=== PATIENT | male | born 1980 | race Caucasian/White ===

== ENCOUNTER → 2019-08-11 09:59 | Outpatient (CLI) | payer OTHER, SELFPAY ==
[2019-08-11 07:52] VITALS: BMI 24.1
--- NOTE | 2019-08-11 08:00 | LES_PTH ---
PATIENT: ENDY SOTO [facility][id number] AGE/SX: 45/M ROOM: RE08/11/[address]: Dr. Patrick Cardoso MD : 1980 BED: DIS: SPEC #: [id number] RECD: 08/11/19 09:52 STATUS: KESHA JANEEN #: [id number] SOFY: 08/11/19 08:[address]: Patrick Cardoso DEPT: SURGICAL PATHOLOGY RECD BY: Lucas Jean ENTERED: 08/11/19 11:07 SP TYPE: Lesion OTHR DR: Dr. Pola Cotto MD Tissues: A - Skin of arm B - Skin of arm C - Skin of arm Procedures: Surgery Specimen Level III HEADER OPERATION: Excision of left arm subcutaneous lesion x3 PRE-OP DIAGNOSIS: Lesion of subcutaneous tissue L98.9 TISSUE SUBMITTED: A - Proximal left arm subcutaneous lesion, B - Distal left arm subcutaneous lesion, C - Lateral left arm subcutaneous lesion MICROSCOPIC DIAGNOSIS A. Subcutaneous mass, left proximal arm, excision: Mature adipose tissue consistent with angiolipoma. B. Subcutaneous mass, distal left arm, excision: Mature adipose tissue consistent with angiolipoma. C. Subcutaneous mass, left lateral arm, excision: Mature adipose tissue consistent with angiolipoma. AM:vickie 08/12/19 COMMENT Case has been reviewed in consultation with Dr. Laird who concurs with the above diagnosis. IDC:SJ MICROSCOPIC DESCRIPTION Slides are reviewed. GROSS DESCRIPTION A - Received in fixative is one container labeled with the patient's name and designated left proximal arm. The specimen consists of an irregular piece of adipose tissue measuring 4 x 4 x 1.5 cm. The external surface is inked. Sections reveal yellow adipose cut surfaces without areas of hemorrhage, necrosis or cystic degeneration. Weft Straightener sections are submitted in three cassettes. B - Received in fixative is one container labeled with the patient's name and designated left distal arm. The specimen consists of a piece of yellow adipose tissue measuring 1.5 x 1.5 x 0.3 cm. The specimen is bisected and reveals yellow adipose cut surfaces without areas of hemorrhage, necrosis or cystic degeneration. The entire specimen is submitted in one cassette. C - Received in fixative is one container labeled with the patient's name and designated left lateral arm. The specimen consists of a piece of yellow adipose tissue measuring 1 x 1 x 0.3 cm. The specimen is bisected and reveals yellow adipose cut surfaces without areas of hemorrhage, necrosis or cystic degeneration. The entire specimen is submitted in one cassette. / SJ:rg 08/11/19 TC:1 CPT: 31905 x3
== END ==
PROVIDERS: Family Provider Family Medicine; PCP Family Medicine; Referring Provider Surgery; Visit Provider Surgery
DX: L98.9 Disorder of the skin and subcutaneous tissue, unspecified (principal)
CPT/HCPCS: 88304; 88305

== ENCOUNTER → 2020-07-07 10:06 | Outpatient (CLI) | payer OTHER, SELFPAY ==
[2020-01-29 08:49] VITALS: BMI 24.1
[2020-07-07 13:03] LABS: Anion Gap 4 (5-15); BUN 21 mg/dL (7-18); BUN/Creat Ratio 18.6 RATIO (10-20); Calcium,Total 8.9 mg/dL (8.5-10.1); Chloride 100 mmol/L (98-107); Cholesterol 221 mg/dL (200); Creatinine, Serum 1.13 mg/dL (0.70-1.30); EST Glomerular Filtration Rate 76 mL/min (>60); Est Glom Filt Rate - Afr Amer 93 mL/min (>60); Glucose 268 mg/dL (74-106); High Density Lipoprotein 31 mg/dL; Potassium 3.9 mmol/L (3.5-5.1); Sodium Level 135 mmol/L (136-145); Triglycerides 178 mg/dL; Very Low Density Lipoprotein 36 mg/dL (5-40)
[2020-07-07 13:11] LABS: Insulin 2.1 mU/L (2.6-37.6)
[2020-07-08 17:36] LABS: C-Peptide 0.8 ng/mL (1.1-4.4)
== END ==
PROVIDERS: PCP Family Medicine; Referring Provider Family Medicine; Visit Provider Family Medicine
DX: E11.9 Type 2 diabetes mellitus without complications (principal)
CPT/HCPCS: 36415; 80048; 80061; 83525; 84681

== ENCOUNTER → 2020-09-22 10:37 | Outpatient (CLI) | payer OTHER, SELFPAY ==
[2020-01-29 08:49] VITALS: BMI 24.1
[2020-09-22 12:16] LABS: Insulin 2.7 mU/L (2.6-37.6)
[2020-09-22 12:17] LABS: ALB/GLOB Ratio 1.1 RATIO (0.9-2.4); AST(SGOT) 21 U/L (15-37); Alanine Aminotransfer ALT/SGPT 33 U/L (16-61); Albumin, Serum 3.7 g/dL (3.2-5.0); Alkaline Phosphatase 81 U/L (45-117); Anion Gap 2 (5-15); BUN 22 mg/dL (7-18); Calcium,Total 8.4 mg/dL (8.5-10.1); Chloride 105 mmol/L (98-107); Cholesterol 274 mg/dL (200); Creatinine, Serum 1.05 mg/dL (0.70-1.30); EST Glomerular Filtration Rate 83 mL/min (>60); Est Glom Filt Rate - Afr Amer 101 mL/min (>60); Globulin 3.4 g/dL (2.2-4.2); Glucose 111 mg/dL (74-106); High Density Lipoprotein 41 mg/dL; Potassium 3.8 mmol/L (3.5-5.1); Protein, Total 7.1 g/dL (6.4-8.2); Sodium Level 139 mmol/L (136-145); Triglycerides 151 mg/dL; Very Low Density Lipoprotein 30 mg/dL (5-40)
== END ==
PROVIDERS: PCP Family Medicine; Referring Provider Family Medicine; Visit Provider Family Medicine
DX: E11.9 Type 2 diabetes mellitus without complications (principal)
CPT/HCPCS: 36415; 80053; 80061; 83525; 84681

== ENCOUNTER → 2020-12-19 06:47 | Outpatient (CLI) | payer OTHER, SELFPAY ==
[2020-11-28 09:08] VITALS: BMI 23.1
--- NOTE | 2020-12-19 08:47 | PFTCOMP ---
COMPLETE PULMONARY FUNCTION TEST INTERPRETATION Brief HPI: Patient is a 40 year old male, currently under the care of myself, who presents to [facility] for complete pulmonary function tests secondary to diagnosis of lung mass. Respiratory therapist reports good effort and reproducible results. Interpretation: Forced expiration spirometry shows no large airways obstructive ventilatory defect with an FEV1 of 108% predicted. There is no significant bronchodilator response by strict ATS criteria. Spirograms are of good quality and plateau normally. The respiratory flow volume loop shows a normal pattern. Lung volumes by body plethysmography show a normal total lung capacity at 7.53 L, 105% predicted. All other lung volumes are within normal limits. Diffusion capacity by carbon monoxide is normal at 99% predicted. The airway resistance is normal. No previous pulmonary function tests were available for review. Impression: These are normal pulmonary function test. Patient tolerated up to a pneumonectomy if necessary.
== END ==
PROVIDERS: PCP Nurse Practitioner Family; Referring Provider Internal Medicine Critical Care Medicine; Visit Provider Internal Medicine Critical Care Medicine
DX: R91.8 Other nonspecific abnormal finding of lung field (principal)
CPT/HCPCS: 94060; 94726; 94729

== ENCOUNTER → 2020-12-21 08:45 | Outpatient (CLI) | payer OTHER, SELFPAY ==
[2020-11-28 09:08] VITALS: BMI 23.1
[2020-12-19 07:49] LABS: Hematocrit 43.9 % (40-54); Hemoglobin 15.1 g/dL (13.0-16.5); Mean Corp Hgb Conc 34.4 g/dL (32-36); Mean Corpuscular Volume 87.3 fL (80-94); Platelet Count 248 K/mm3 (150-450); RBC Distribution Width CV 12.7 % (11.6-14.6); RBC Distribution Width SD 40.6 fl (35.1-43.9); Red Blood Count 5.03 M/mm3 (4.6-6.2); White Blood Count 6.1 K/mm3 (4.4-11.0)
[2020-12-19 08:19] LABS: Partial Thromboplast Time 27.8 Seconds (24.1-36.2); Prothrombin Time (Protime)PT. 12.2 SECONDS (11.7-14.9)
[2020-12-21] VITALS (13 sets, daily range): BP systolic 98–126; BP diastolic 40–85; PULSE 66–84; RESP 12–19; TEMP 36.9; O2SAT 98–100; BMI 23.0
--- NOTE | 2020-12-21 08:49 | CT_ITS ---
PROCEDURE: CT GUIDED CORE NEEDLE BIOPSY OF A left lower lobe LUNG LESION INDICATION: Male, 40 years old. Left lung mass biopsy. PHYSICIAN: Dr. PADDY Gaytan CONSENT: Written informed consent was obtained having explained the risks, benefits and alternatives in detail with the patient who accepted the risks and agreed to proceed. Laboratory review and clinical assessment was performed. CONSCIOUS SEDATION PROTOCOL: The Drugs used were: 2 mg Versed, IV., and 50 mcg Fentanyl, IV. The sedation time was: 16 minutes. Conscious sedation was started 9:54 AM and terminated at 1010 The conscious sedation protocol was independently monitored. RADIATION DOSAGE (If Supplied By Facility): CTDIvol = ( 19 ) mGy, DLP = ( 1375.56 ) mGycm Individualized dose optimization techniques were used for this CT. TECHNIQUE: The patient was placed in the pleural position. A noncontrast CT was performed to localize the lesion in the . The skin surface was prepped and draped in a sterile fashion. 1% lidocaine was used for local anesthesia. Using CT guidance, a 20-gauge coaxial biopsy device was advanced to the periphery of the lesion. A total of 5 core specimens were obtained. The specimens were placed in a formalin solution. A post procedure CT demonstrated no adverse sequelae or pneumothorax. The patient tolerated the procedure well without adverse event. A negative biopsy does not exclude malignancy. Further imaging or clinical followup based on patient condition and degree of clinical suspicion for malignancy. Suggest rebiopsy, if biopsy results do not match with clinical scenario. CT/Biopsy/Inj or Needle Placement IMPRESSION: 1. CT directed core needle biopsy of the left lower lobe pulmonary nodule using CT image guidance with image documentation as described. Pathology results are pending. 2. Conscious Sedation protocol utilized with independent monitoring. Electronically Signed: Filipe Bradley MD at 10:40 EST , Service support ,
[2020-12-21] MEDS: Midazolam 2 MG/2 ML Syringe IV (09:54)
[2020-12-21] MEDS: fentaNYL 100 MCG/2 ML Ampul IV ×2 (09:56→10:07)
--- NOTE | 2020-12-21 10:05 | ASPIGT_PTH ---
PATIENT: ENDY SOTO LOC: CT U#:[id number] AGE/SX: 45/M ROOM: RE12/21/[address]: Dr. Yassine Celestin MD : 1980 BED: DIS: SPEC #: [id number] RECD: 12/21/20 10:30 STATUS: KESHA JANEEN #: [id number] SOFY: 12/21/20 10:[address]: Yassine Celestin DEPT: SURGICAL PATHOLOGY RECD BY: Laura Goff ENTERED: 12/21/20 12:25 SP TYPE: ASP RAD OTHR DR: Fernando Vela, PICKER OPERATOR-C Tissues: Lung, NOS Procedures: FNA Specimen Adequacy Special Stain Group II Surgery Specimen Level IV Imprint (control) HEADER OPERATION: CT-guided lung biopsy PRE-OP DIAGNOSIS: Left upper lung mass TISSUE SUBMITTED: Left upper lung mass, 20-gauge core x5 MICROSCOPIC DIAGNOSIS Left upper lung mass, CT-guided core biopsy: Scant minute fragment of benign fibrous tissue. Negative for malignancy. See comment. UMANG:vickie 12/22/2020 COMMENT The specimen is evaluated at the time of biopsy by Dr. Laird. Immediate Evaluation = Negative for malignant cells. Correlation with clinical, radiologic findings and appropriate follow up are necessary. Rebiopsy is suggested if clinically indicated. Case has been reviewed in consultation with Dr. Ramsay who concurs with the above diagnosis. IDC:AM MICROSCOPIC DESCRIPTION Slides are reviewed. GROSS DESCRIPTION Received in fixative is one container labeled with the patient's name and designated left lung mass, CT-guided core biopsy. The specimen consists of a few minute fragments of fisher soft tissue measuring <0.1 cm in greatest dimension. The entire specimen is submitted in one cassette. Two touch imprints are prepared at the time of core biopsy. / UMANG:vickie 12/21/19 TC:5 CPT: 27942, 49305
--- NOTE | 2020-12-21 10:15 | RAD_ITS ---
STUDY: X-RAY CHEST REASON FOR EXAM: Male, 40 years old. POST LUNG BX TECHNIQUE: AP inspiration and expiration views. COMPARISON: None. FINDINGS: Immediate post left lung biopsy radiograph. No evidence of pneumothorax. RAD/Chest Insp/Exp 2 View IMPRESSION: Immediate post left lung biopsy radiograph. No evidence of pneumothorax. Electronically Signed: Filipe Bradley MD at 10:38 EST , Service support ,
--- NOTE | 2020-12-21 12:10 | RAD_ITS ---
STUDY: X-RAY CHEST REASON FOR EXAM: Male, 40 years old. 2 hour post lung biopsy TECHNIQUE: AP inspiration and expiration views. COMPARISON: Comparison is made with prior study done earlier in the day. FINDINGS: There is no evidence of a pneumothorax on the 2 hour post left lung biopsy radiograph. RAD/Chest Insp/Exp 2 View IMPRESSION: No evidence of pneumothorax on the 2 hour post left lung biopsy radiograph. Electronically Signed: Filipe Bradley MD at 12:33 EST , Service support ,
== END ==
PROVIDERS: PCP Nurse Practitioner Family; Referring Provider Internal Medicine Critical Care Medicine; Visit Provider Internal Medicine Critical Care Medicine
DX: R91.1 Solitary pulmonary nodule (principal)
CPT/HCPCS: 32408; 36415; 71046; 77012; 85027; 85610; 85730; 88172; 88305; 88313; 99155; 99156; 99157; J7040; A4216; C2613

== ENCOUNTER → 2021-01-31 10:24 | Outpatient (CLI) | payer OTHER, SELFPAY ==
[2021-01-18 09:39] VITALS: BMI 23.7
[2021-01-31 12:54] LABS: AST(SGOT) 30 U/L (15-37); Alanine Aminotransfer ALT/SGPT 35 U/L (16-61); Alkaline Phosphatase 91 U/L (45-117); Bilirubin, Direct 0.09 mg/dL (0.00-0.30); CRP < 2.90 mg/L (0.0-3.0); Globulin 3.7 g/dL (2.2-4.2); Protein, Total 7.7 g/dL (6.4-8.2)
[2021-02-03 14:09] LABS: Endomysial Antibody IgA Negative (Negative)
[2021-02-03 15:41] LABS: Immunoglobulin A < 5 mg/dL (90-386); t-Transglutaminase IgA <2 U/mL (0-3)
== END ==
PROVIDERS: PCP Nurse Practitioner Family; Referring Provider Nurse Practitioner Family; Visit Provider Internal Medicine Gastroenterology
DX: R19.7 Diarrhea, unspecified (principal)
CPT/HCPCS: 36415; 80076; 82784; 83516; 86140; 86255

== ENCOUNTER → 2021-02-15 09:44 | Outpatient (CLI) | payer OTHER, SELFPAY ==
[2021-01-18 09:39] VITALS: BMI 23.7
== END ==
PROVIDERS: PCP Nurse Practitioner Family; Referring Provider Internal Medicine Gastroenterology; Visit Provider Internal Medicine Gastroenterology
DX: R19.7 Diarrhea, unspecified (principal)
CPT/HCPCS: 36415; 83516

== ENCOUNTER → 2021-03-01 07:37 | Outpatient (CLI) | payer OTHER, SELFPAY ==
[2021-01-18 09:39] VITALS: BMI 23.7
--- NOTE | 2021-03-01 07:39 | CT_ITS ---
STUDY: CT CHEST WITHOUT CONTRAST REASON FOR EXAM: Male, 40 years old. New lung mass RADIATION DOSAGE (If Supplied By Facility): CTDIvol = ( 10.56 ) mGy, DLP = ( 401.02 ) mGycm TECHNIQUE: Transaxial imaging was performed without the administration of intravenous contrast material. Multiplanar coronal and sagittal images were reformatted. Individualized dose optimization techniques were used for this CT. COMPARISON: Comparison is made with prior outside examination dated 11/17/2020. FINDINGS: Mildly enlarged left axillary lymph node. The largest node measures 1.4 cm. The previously seen ill-defined density in the superior lateral aspect of the left upper lobe this abnormality was biopsied on prior examination. It presently measures 4 cm x 1.6 cm. This is essentially unchanged. There is no demonstrated pleural abnormality. Normal heart and pericardium. There are multiple small lymph nodes within the mediastinum, which are normal in size and morphology most compatible with reactive lymph hyperplasia. Normal hilar regions. Normal unenhanced pulmonary arteries. Normal aorta arch and descending thoracic aorta. Normal osseous structures. There is no demonstrated abnormality of the visualized upper abdomen. CT/Chest without Contrast IMPRESSION: Stable examination with an irregular density in the superior lateral aspect of the left lower lobe. Electronically Signed: Filipe Bradley MD at 12:48 EDT , Service support ,
== END ==
PROVIDERS: PCP Nurse Practitioner Family; Referring Provider Internal Medicine Critical Care Medicine; Visit Provider Internal Medicine Critical Care Medicine
DX: R91.8 Other nonspecific abnormal finding of lung field (principal)
CPT/HCPCS: 71250; C9803

== ENCOUNTER → 2021-03-01 14:49 | Outpatient (CLI) | payer OTHER, SELFPAY ==
[2021-01-18 09:39] VITALS: BMI 23.7
== END ==
PROVIDERS: PCP Nurse Practitioner Family; Referring Provider Internal Medicine Gastroenterology; Visit Provider Internal Medicine Gastroenterology
DX: Z11.59 Encounter for screening for other viral diseases (principal)
CPT/HCPCS: 87635; U0002

== ENCOUNTER → 2021-10-04 16:40 | Outpatient (CLI) | payer BC, SELFPAY ==
--- NOTE | 2021-10-04 16:43 | CT_ITS ---
INDICATION: Follow up lung mass EXAMINATION: CT Chest W/O Contrast Injection TECHNIQUE: Helically acquired images were obtained of the chest without IV contrast. A radiation dose optimization technique was used for this scan. COMPARISON: 03/01/2021. FINDINGS: Lungs: Stable appearance and size of an ill-defined lesion within the superior segment of the left lower lobe measuring 4.3 x 2.1 cm, previously 4.4 x 1.9 cm. Mediastinum: The cardiomediastinal silhouette is not enlarged. No mediastinal, hilar or axillary adenopathy. The thoracic aorta is unremarkable. Pleura: Unremarkable Bones/Soft tissues: No suspicious osseous or soft tissue lesions Upper abdomen: No visualized abnormalities in the upper abdomen. CT/Chest without Contrast IMPRESSION: Stable appearance and size of an ill-defined lesion within the superior segment of the left lower lobe. This was previously biopsied on 12/21/2020. No new findings. Electronically Signed: Pola Cosme MD at 18:14 EDT Tel , Service support ,
== END ==
PROVIDERS: PCP Nurse Practitioner Family; Referring Provider Internal Medicine Critical Care Medicine; Visit Provider Internal Medicine Critical Care Medicine
DX: R91.8 Other nonspecific abnormal finding of lung field (principal)
CPT/HCPCS: 71250

== ENCOUNTER → 2021-10-18 06:56 | Outpatient (CLI) | payer BC, SELFPAY ==
[2021-10-18 08:24] LABS: ALB/GLOB Ratio 0.9 RATIO (0.9-2.4); AST(SGOT) 17 U/L (15-37); Alanine Aminotransfer ALT/SGPT 30 U/L (16-61); Albumin, Serum 3.4 g/dL (3.2-5.0); Alkaline Phosphatase 91 U/L (45-117); Anion Gap 5 (5-15); BUN 22 mg/dL (7-18); BUN/Creat Ratio 21.6 RATIO (10-20); Calcium,Total 8.8 mg/dL (8.5-10.1); Chloride 104 mmol/L (98-107); Cholesterol 248 mg/dL (200); Creatinine, Serum 1.02 mg/dL (0.70-1.30); EST Glomerular Filtration Rate 86 mL/min (>60); Est Glom Filt Rate - Afr Amer 103 mL/min (>60); Globulin 3.9 g/dL (2.2-4.2); Glucose 147 mg/dL (74-106); High Density Lipoprotein 23 mg/dL; Potassium 4.1 mmol/L (3.5-5.1); Protein, Total 7.3 g/dL (6.4-8.2); Sodium Level 136 mmol/L (136-145); Triglycerides 534 mg/dL
== END ==
PROVIDERS: PCP Nurse Practitioner Family; Referring Provider Nurse Practitioner Family; Visit Provider Nurse Practitioner Family
DX: Z00.00 Encounter for general adult medical examination without abnormal findings (principal); Z13.6 Encounter for screening for cardiovascular disorders
CPT/HCPCS: 36415; 80053; 80061

== ENCOUNTER 2022-02-05 10:04 | Outpatient (CLI) | payer BC, SELFPAY ==
[2022-02-05 13:07] LABS: Vitamin D,25 Hydroxy 65.6 ng/mL
[2022-02-05 13:18] LABS: Cholesterol 256 mg/dL (200); High Density Lipoprotein 40 mg/dL; T4 Free Direct 1.05 ng/dL (0.76-1.46); Thyroid Stim Hormone (TSH) 1.82 uIU/mL (0.358-3.74); Triglycerides 126 mg/dL; Very Low Density Lipoprotein 25 mg/dL (5-40)
== END 2022-02-05 23:59 | disposition home or self-care (01) ==
LOC: BIMLAB 10:04
PROVIDERS: PCP Nurse Practitioner Family; Referring Provider Internal Medicine Endocrinology, Diabetes & Metabolism; Visit Provider Internal Medicine Endocrinology, Diabetes & Metabolism
DX: E78.2 Mixed hyperlipidemia (principal); E10.9 Type 1 diabetes mellitus without complications; E06.3 Autoimmune thyroiditis; K90.0 Celiac disease; E55.9 Vitamin D deficiency, unspecified
CPT/HCPCS: 36415; 80061; 82306; 84439; 84443

== ENCOUNTER → 2022-09-03 | Outpatient (CLI) | payer BC, SELFPAY ==
--- NOTE | 2022-09-03 06:56 | CT_ITS ---
STUDY: CT CHEST WITHOUT CONTRAST REASON FOR EXAM: Male, 42 years old. LLL lung mass RADIATION DOSAGE (If Supplied By Facility): CTDIvol = ( 13.09 ) mGy, DLP = ( 506.96 ) mGycm TECHNIQUE: Transaxial imaging was performed without the administration of intravenous contrast material. Multiplanar coronal and sagittal images were reformatted. Individualized dose optimization techniques were used for this CT. COMPARISON: Comparison is made with prior study dated 10/04/2021. FINDINGS: CHEST Stable appearance of the ill-defined nodular density in the posterior aspect of the superior segment of the left lower lobe. No new abnormality is seen. There is no demonstrated pleural abnormality. Normal heart and pericardium. Normal mediastinum. Normal hilar regions. Normal unenhanced pulmonary arteries. Normal aorta arch and descending thoracic aorta. Normal osseous structures. There is no demonstrated abnormality of the visualized upper abdomen. CT/Chest without Contrast IMPRESSION: Stable examination. Electronically Signed: Filipe Bradley MD at 15:31 EDT ,
== END | disposition home or self-care (01) ==
PROVIDERS: PCP Nurse Practitioner Family; Referring Provider Internal Medicine Critical Care Medicine; Visit Provider Internal Medicine Critical Care Medicine
DX: R91.8 Other nonspecific abnormal finding of lung field (principal)
CPT/HCPCS: 71250

== ENCOUNTER 2023-07-15 05:03 | Emergency (ER) | payer BC, SELFPAY ==
[2023-07-15 05:03] VITALS: BP 132/72; PULSE 79; RESP 16; TEMP 36.6; O2SAT 99; BMI 26.0
--- NOTE | 2023-07-15 05:28 | CT_ITS ---
EXAM: CT CERVICAL SPINE WITHOUT INTRAVENOUS CONTRAST CLINICAL INDICATION: Radiculopathy TECHNIQUE: Helically acquired images were obtained of the cervical spine without intravenous contrast. 2D reformatted images were reviewed. This CT exam was performed using one or more of the following dose reduction techniques: automated exposure control, adjustment of the mA and/or kV according to patient size, and/or use of iterative reconstruction technique. RADIATION DOSE: CTDIvol = 21.11 mGy, DLP = 504.91 mGy-cm COMPARISON: No relevant prior studies available. FINDINGS: VERTEBRAE: Unremarkable. No fracture. No traumatic subluxation. No discrete lytic or blastic abnormality. Normal alignment. Normal craniocervical junction and cervicothoracic junction. DISCS/SPINAL CANAL/NEURAL FORAMINA: Unremarkable. Disc heights are preserved. No critical stenosis. SOFT TISSUES: Unremarkable. No prevertebral soft tissue swelling. LYMPH NODES: Unremarkable. No cervical adenopathy. LUNG APICES: Unremarkable as visualized. Clear. CT/Spine Cervical without Contras IMPRESSION: No evidence of acute cervical spinal fracture or spondylolisthesis. Electronically Signed: Simeon Parekh MD at 5:58 EDT ,
[2023-07-15] MEDS: 0.9% Normal Saline 1,000 ML 999 ML IV (05:38)
[2023-07-15] MEDS: Gabapentin 100 MG Capsule PO (05:39)
[2023-07-15 05:43] LABS: Absolute Lymphocyte Count 1.31 X10^3/uL (0.83-4.51); Absolute Neutrophil Count 4.4 X10^3/uL (2.0-7.7); Basophil# 0.03 X10^3/uL; Basophil% 0.5 % (0-1); Eosinophil# 0.29 X10^3/uL; Eosinophils% 4.4 % (0-5); Hematocrit 41.9 % (40-54); Lymphocyte # 1.31 X10^3/ul (0.83-4.51); Mean Corp Hgb Conc 33.4 g/dL (32-36); Mean Corpuscular Hgb 29.4 pg (27.0-32.0); Mean Corpuscular Volume 87.8 fL (80-94); Mean Platelet Vol. 9.9 fl (6.2-12.0); Monocyte# 0.51 X10^3/uL; Monocyte% 7.8 % (0-10); NRBC Flagged by Analyzer 0 % (0-5); Neutrophil # 4.38 X10^3/uL (2.7-7.7); Platelet Count 151 K/mm3 (150-450); RBC Distribution Width CV 13.1 % (11.6-14.6); RBC Distribution Width SD 42.2 fl (35.1-43.9); Red Blood Count 4.77 M/mm3 (4.6-6.2); White Blood Count 6.5 K/mm3 (4.4-11.0)
[2023-07-15 06:01] LABS: Anion Gap 4 (5-15); BUN 24 mg/dL (7-18); BUN/Creat Ratio 23.5 RATIO (10-20); CPK Total, Creatine Kinase 97 U/L (39-308); CRP 3.81 mg/L (0.0-3.0); Calcium,Total 8.3 mg/dL (8.5-10.1); Chloride 108 mmol/L (98-107); Creatinine, Serum 1.02 mg/dL (0.70-1.30); EST Glomerular Filtration Rate 85 mL/min (>60); Est Glom Filt Rate - Afr Amer 103 mL/min (>60); Estimated Creatinine Clearance 103.55 ml/min; Glucose 158 mg/dL (74-106); Magnesium 2.1 mg/dL (1.6-2.6); Potassium 3.9 mmol/L (3.5-5.1); Sodium Level 140 mmol/L (136-145)
--- NOTE | 2023-07-15 06:52 | EDS_ITS ---
HPI History of Present Illness Chief Complaint: Numb/Ting Informant: patient and spouse/S.O. Narrative Narrative: Patient is a 42-year-old male with past medical history Stormy's thyroiditis type 1 diabetes and celiac disease. He states in the last 1 to 2 days he has noticed a almost burning sensation in his bilateral posterior upper thighs and in his arms from the elbow down. He states occasionally he will get a sharp stabbing pain that radiates down both arms. He denies any recent trauma or excessive activity. He states he has been no new medications. He denies any bouts of vomiting or diarrhea. He states he is unsure if this is related to pot ential infection or electrolyte disorder and secondary to this comes in for evaluation [facility] Medical History Celiac disease Chronic cough Chronic pain Diabetes Stormy's disease Hemorrhoids Hyperbilirubinemia Lesion of subcutaneous tissue Mixed hyperlipidemia Home Medications ascorbic acid (vitamin C) 500 mg capsule 500 mg PO DAILY 12/21/20 [History Last Taken 12/20/20] cholecalciferol (vitamin D3) 50 mcg (2,000 unit) capsule 2,000 unit PO DAILY 12/21/20 [History Last Taken 12/20/20] multivitamin 1 ea PO DAILY 12/21/20 [History Last Taken 12/20/20] zinc 50 mg tablet 50 mg PO DAILY 12/21/20 [History Last Taken 12/20/20] blood-glucose sensor (FreeStyle Ivan 3 Sensor device) #6 ea 01/23/23 [Rx Last Taken Unknown] insulin glargine 100 unit/mL (3 mL) subcutaneous pen 16 unit (0.16 mL) subcut QPM #15 mL 04/01/23 [Rx Last Taken Unknown] Novolog FlexPen U-100 Insulin 100 unit/mL (3 mL) subcutaneous (insulin aspart U- 100) 5 unit (0.05 mL) subcut TID #3 mL 07/14/23 [Rx Last Taken Unknown] gabapentin 100 mg capsule 100 mg PO TID 30 days #90 caps 07/15/23 [Rx Last Taken Unknown] Allergy/AdvReac Type Severity Reaction Status Date / Time gluten Allergy bloating Verified 07/15/23 05:06 Family History Father Colon cancer Other Cancer Diabetes Prostate cancer Skin cancer Thyroid disorder Surgical History S/P tonsillectomy Social History Smoking Status: Never smoker alcohol intake: current alcohol intake frequency: a few times a month ROS ROS ED Constitutional Constitutional ED: Denies chills or fever(s) ENT ENT ED: Denies sore throat Cardiovascular Cardiovascular: Denies chest pain Respiratory/Chest Respiratory/Chest: Denies cough or dyspnea Gastrointestinal Gastrointestinal: Denies abdominal pain, diarrhea, nausea or vomiting Genitourinary Genitourinary ED: Denies dysuria Musculoskeletal Musculoskeletal: Reports other Details: Positive bilateral thigh and arm pain ; Denies myalgias Integumentary Denies rash Neurologic Neurologic: Reports paresthesias; Denies headache(s) or weakness Hematologic/Lymphatic Hematologic/Lymphatic: Denies easy bleeding or easy bruising EXAM Physical Exam Const Vital Signs: 07/15/23 05:03 07/15/23 07:01 Temperature 97.8 F Temperature Source Temporal Pulse Rate 79 69 Respiratory Rate 16 18 Blood Pressure 132/72 H 128/57 H Blood Pressure Mean 92 Pulse Ox 99 100 Oxygen Delivery Method Room Air Positive well nourished and well developed General Appearance ED: well developed HEENT Reports moist mucous membranes Eyes PERRL and EOMs intact bilaterally Neck supple Neck Narrative: Negative Spurling sign bilaterally Resp normal respiratory effort and clear to auscultation bilaterally Cardio regular rate and regular rhythm Rate: other Other Details: Radial and carotid pulses are equal and symmetric Back/Spine Back/Spine Narrative: No bony deformity or step-off of the cervical thoracic or lumbar spine no midline pain on palpation No saddle anesthesia. Negative straight leg raise. No clonus or Babinski. Patellar reflexes are plus 3 out of 4 bilaterally Extremity normal to inspection Extremity Narrative: Bilateral upper and lower extremities are neurovascularly intact. In the upper extremities the AIN/PIN are intact and normal. There is no asymmetric edema of the lower extremities or upper extremities to suggest DVT and patient has negative Homans' sign bilaterally. No overlying soft tissue changes to suggest trauma or infection. Neuro oriented x3, CN's II-XII intact bilaterally and no sensory deficits noted Sensorium / Orientation: alert Motor Exam: strength 5/5 throughout Psych mental status grossly normal Skin no rashes or lesions noted MDM MDM MDM Narrative Medical decision making narrative: Patient presented ER stable vitals but reported a burning and numbness sensation to both arms and legs. Despite this sensation he is neurovascularly intact. There is concern that this could be related to an electrolyte disturbance or radiculopathy and secondary to this basic blood work was obtained as well as a CT scan of the cervical spine. I do not feel there is need for imaging of his lower spine as his main paresthesias were in the upper extremities. Blood work showed no clinically significant finding. His calcium value was low but is at his baseline. He has no signs of rhabdomyolysis. There is no obvious i nfectious process. His CRP is up by 0.8 but this is clinically insignificant as we are looking for a value greater than 10. Therefore at this time as his exam does not indicate acute electrolyte derangement infectious process or radiculopathy I feel this could be related to his diabetes leading to a neuropathy syndrome. Patient will be started on gabapentin secondary to this and is otherwise safe for discharge History & Record Review Discussion w/independent historian: Patient and Significant other Lab Data Attestation: I reviewed the patient's lab results. Labs: Laboratory Results - last 24 hr 07/15/23 05:36 WBC 6.5 RBC 4.77 Hgb 14.0 Hct 41.9 MCV 87.8 MCH 29.4 MCHC 33.4 RDW Std Deviation 42.2 RDW Coeff of Cassius 13.1 Plt Count 151 MPV 9.9 Immature Gran % (Auto) 0.300 Neut % (Auto) 67.0 Lymph % (Auto) 20.0 Jay % (Auto) 7.8 Eos % (Auto) 4.4 Baso % (Auto) 0.5 Absolute Neuts (auto) 4.4 Absolute Lymphs (auto) 1.31 Nucleated RBC % 0 Sodium 140 Potassium 3.9 Chloride 108 H Carbon Dioxide 28.0 Anion Gap 4 L BUN 24 H Creatinine 1.02 Estim Creat Clear Calc 103.55 Est GFR (MDRD) Af Amer 103 Est GFR (MDRD) Non-Af 85 BUN/Creatinine Ratio 23.5 H Glucose 158 H Calcium 8.3 L Magnesium 2.1 Total Creatine Kinase 97 C-React Prot Ext Range 3.81 H Radiography Diagnostic Testing: Clinical Impression(s) from Imaging Studies Cervical Spine CT 07/15/23 05:28 IMPRESSION: No evidence of acute cervical spinal fracture or spondylolisthesis. Electronically Signed: Simeon Parekh MD at 5:58 EDT , Discharge Plan Triage Chief Complaint: Numb/Ting ED Provider: Farhat Smiley Dx/Rx/DC Orders Clinical Impression: Paresthesias, ACD (adult celiac disease), Controlled type 1 diabetes mellitus, Stormy's thyroiditis Instructions: ED Neuropathy, Peripheral, ED Paraesthesias Prescriptions: New gabapentin 100 mg capsule 100 mg PO TID 30 Days Qty: 90 0RF No Action (DME) FreeStyle Ivan 3 Sensor Device See Rx Instructions .Route Qty: 6 3RF Rx Instructions: As directed multivitamin 1 EACH tablet 1 ea PO DAILY zinc 50 MG tablet 50 mg PO DAILY cholecalciferol (vitamin D3) 2,000 UNIT capsule 2,000 unit PO DAILY ascorbic acid (vitamin C) 500 MG capsule 500 mg PO DAILY insulin glargine 100 unit/mL (3 mL) insulin pen 16 unit subcut QPM Qty: 15 3RF insulin aspart U-100 [Novolog FlexPen U-100 Insulin] 100 unit/mL (3 mL) insulin pen 5 unit subcut TID Qty: 3 8RF Primary Care Provider: Fernando Vela NP Referrals: Fernando Vela AGENCY OWNER, AGENCY OWNER-C [Primary Care Provider] - Activity Restrictions/Additional Instructions: Your work-up today did not show any obvious signs of infection or neurologic impingement or electrolyte derangement other than your chronically low calcium which is at its baseline. Follow-up with your family doctor for repeat evaluation to discuss further testing regarding your symptoms and return to the ER should you have any further concerns Disposition Disposition: Home, Self Care Discharge Date/Time: 07/15/23 07:02
[2023-07-15 07:01] VITALS: BP 128/57; PULSE 69; RESP 18; O2SAT 100
== END 2023-07-15 07:02 | disposition home or self-care (01) ==
PROVIDERS: Emergency Provider Emergency Medicine; PCP Nurse Practitioner Family; Visit Provider Emergency Medicine
DX: R20.2 Paresthesia of skin (principal); E10.9 Type 1 diabetes mellitus without complications; Z79.4 Long term (current) use of insulin; E78.2 Mixed hyperlipidemia; E06.3 Autoimmune thyroiditis; K90.0 Celiac disease; Z79.899 Other long term (current) drug therapy
CPT/HCPCS: 72125; 80048; 82550; 83735; 85025; 86140; 96360; 99284; J7030; A4216

== ENCOUNTER → 2023-07-21 | Outpatient (CLI) | payer BC, SELFPAY ==
[2023-07-21 07:59] LABS: AST(SGOT) 39 U/L (15-37); Alanine Aminotransfer ALT/SGPT 85 U/L (16-61); Albumin, Serum 3.5 g/dL (3.2-5.0); Alkaline Phosphatase 77 U/L (45-117); Anion Gap 1 (5-15); BUN 23 mg/dL (7-18); BUN/Creat Ratio 20.5 RATIO (10-20); Calcium,Total 8.6 mg/dL (8.5-10.1); Chloride 107 mmol/L (98-107); Cholesterol 214 mg/dL (200); Creatinine, Serum 1.12 mg/dL (0.70-1.30); EST Glomerular Filtration Rate 76 mL/min (>60); Est Glom Filt Rate - Afr Amer 92 mL/min (>60); Globulin 3.6 g/dL (2.2-4.2); Glucose 110 mg/dL (74-106); High Density Lipoprotein 39 mg/dL; Potassium 3.8 mmol/L (3.5-5.1); Protein, Total 7.1 g/dL (6.4-8.2); Sodium Level 139 mmol/L (136-145); T4 Free Direct 0.96 ng/dL (0.76-1.46); Thyroid Stim Hormone (TSH) 3.73 uIU/mL (0.358-3.74); Triglycerides 122 mg/dL; Very Low Density Lipoprotein 24 mg/dL (5-40)
[2023-07-21 09:01] LABS: Vitamin B12 625 pg/mL (211-911); Vitamin D,25 Hydroxy 73.9 ng/mL
[2023-07-21 14:49] LABS: Microalbumin,Random Urine 5.8 mg/L (NO RANGE EST.); Microalbumin:Creatinine Ratio 2.6 mg/g CRE (<30 mg/g CRE)
== END | disposition home or self-care (01) ==
PROVIDERS: PCP Nurse Practitioner Family; Referring Provider Internal Medicine Endocrinology, Diabetes & Metabolism; Visit Provider Internal Medicine Endocrinology, Diabetes & Metabolism
DX: E10.9 Type 1 diabetes mellitus without complications (principal); E06.3 Autoimmune thyroiditis; K90.0 Celiac disease; E78.2 Mixed hyperlipidemia; E55.9 Vitamin D deficiency, unspecified
CPT/HCPCS: 36415; 80053; 80061; 82043; 82306; 82570; 82607; 84439; 84443

== ENCOUNTER → 2024-01-30 | Outpatient (CLI) | payer BC, SELFPAY ==
--- OUTSIDE RECORDS SUMMARY | 2024-01-30 06:47 | XMS RPT_ITS | CCD ---
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 Name Role Phone KALLI BENJAMIN APRN, CNP Primary Care Phys ician Allergies Allergy Classification Reported Allergen(s) Allergy Type Date of Onset Reaction(s) Facility (1 source) metFORMIN; Translations: [metformin] Drug Allergy Vomiting (disorder) [facility] Work Phone: Medications Current Medications Medication Drug Class(es) Dates Sig (Normalized) Sig (Original) Ascorbic Acid (1 source) Vitamin C Start: 10-09-2021 Vitamin C qDay, 0 Refill(s) Start Date: 10/09/21 Status: Ordered guaiFENesin 600 mg oral tablet (1 source) Start: 12-20-2021 End: 12-30-2021 guaiFENesin 600 mg oral tablet, extended release Dose : 600 mg = 1 tab(s), Oral, q12h, X 10 day(s), # 20 tab(s), 0 Refill(s), 12/30/21 8:00:00 EST, Pharmacy: [id number], COVID-19, 182, cm, 12/20/21 7:44:00 EST, Height, kg, 12/20/21 7:44:00 EST, Dosing Weight Start Date: 12/20/21 Stop Date: 12/30/21 Status: Ordered icosapent ethyl 1000 mg oral capsule (1 source) Start: 10-22-2021 End: 04-20-2022 Vascepa 1 g oral capsule Dose : 2 gram(s) = 2 cap(s), Oral, BID, # 360 cap(s), 1 Refill(s), Pharmacy: [facility], 182, cm, 11/09/21 15:39:00 EST, Height, kg, 10/09/21 15:39:00 EST, Dosing Weight Start Date: 10/22/21 Stop Date: 04/20/22 Status: Ordered Vitamin D3 (1 source) Start: 10-09-2021 Vitamin D3 Dose : 5,000 unit(s) = 1 cap(s), Oral, qWeek, 0 Refill(s) Start Date: 10/09/21 Status: Ordered Zinc (1 source) Start: 10-09-2021 take 1 mg by mouth once daily Zinc mg =, Oral, qDay, 0 Refill(s) Start Date: 10/09/21 Status: Ordered Problems Problem Classification Problem Date Documented Date Episodic/Chronic Diabetes mellitus without complication (1 source) 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 Disorders of lipid metabolism (1 source) Hypertriglyceridemia 10-22-2021 Chronic Immunizations and screening for infectious disease (1 source) Autoantibody titer positive 11-07-2020 Episodic Other screening for suspected conditions (not mental disorders or infectious disease) (1 source) Imaging of thorax abnormal 11-17-2020 Chron ic Results Test Name Value Interpretation Reference Range Facil ity Encounters Encounter Date Encounter Type Care Provider Facility Start: 12-20-2021 End: 12-20-2021 Patient encounter procedure 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 [facility] Social History Date Type Detail Facility Start: 10-23-2020 Never smoked t obacco (finding) [facility] Sex Assigned At [facility] Evaluation + Plan note Laboratory Note Date & Type Note Facility Evaluation + Plan note Future Scheduled TestsThyroid Stimulating Hormone 01/22/22Free T4 01/22/22Lipid Profile 01/22/22 [facility] Hospital course Narrative Note Date & Type Note Facility Hospital course Narrative No data available for this section [facility] Hospital Discharge instructions Note Date & Type Note Facility Hospital Discharge instructions No data available for this section [facility] Mane Summary Purpose Family History No Family History Records Found Advance Directives No Advanced Directives Records Found Additional Source Comments (unrecognized sect ion and content) No Status Records Found INFORMATION SOURCE (unrecogn ized section and content) FOR RECORDS PERTAINING TO PATIENTS WHO ARE OR HAVE BEEN ENROLLED IN A CHEMICAL DEPENDENCY/SUBSTANCEABUSE PROGRAM, SOME INFORMATION MAY BE OMITTED. This clinical summary was aggregated from multiple sources. Caution should be exercised in using it in the provision of clinical care. This summary normalizes information from multiple sources, and as a consequence, information in this document may materially change the coding, format and clinical context of patient data. In addition, data may be omitted in some cases. CLINICAL DECISIONS SHOULD BE BASED ON THE PRIMARY CLINICAL RECORDS. [facility]. provides no warranty or guarantee of the accuracy or completeness of information in this document.
[2024-01-30 08:19] LABS: ALB/GLOB Ratio 1.1 RATIO (0.9-2.4); AST(SGOT) 64 U/L (15-37); Alanine Aminotransfer ALT/SGPT 55 U/L (16-61); Albumin, Serum 3.7 g/dL (3.2-5.0); Alkaline Phosphatase 63 U/L (45-117); Anion Gap 3 (5-15); BUN 18 mg/dL (7-18); BUN/Creat Ratio 15.4 RATIO (10-20); Chloride 108 mmol/L (98-107); Cholesterol 239 mg/dL (200); Creatinine, Serum 1.17 mg/dL (0.70-1.30); EST Glomerular Filtration Rate 72 mL/min (>60); Est Glom Filt Rate - Afr Amer 87 mL/min (>60); Globulin 3.5 g/dL (2.2-4.2); Glucose 72 mg/dL (74-106); High Density Lipoprotein 49 mg/dL; Potassium 3.9 mmol/L (3.5-5.1); Protein, Total 7.2 g/dL (6.4-8.2); Sodium Level 140 mmol/L (136-145); Triglycerides 155 mg/dL; Very Low Density Lipoprotein 31 mg/dL (5-40)
== END | disposition home or self-care (01) ==
LOC: LAB 06:45
PROVIDERS: PCP Nurse Practitioner Family; Referring Provider Internal Medicine Endocrinology, Diabetes & Metabolism; Visit Provider Internal Medicine Endocrinology, Diabetes & Metabolism
DX: E10.9 Type 1 diabetes mellitus without complications (principal); E78.2 Mixed hyperlipidemia; R20.2 Paresthesia of skin; K90.0 Celiac disease
CPT/HCPCS: 36415; 80053; 80061

== ENCOUNTER → 2025-07-14 | Outpatient (CLI) | payer BC, SELFPAY ==
--- OUTSIDE RECORDS SUMMARY | 2025-07-14 06:21 | XMS RPT_ITS | CCD ---
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 Toby Gaston Attending Provider [phone] Mirian MOBILE NURSE, MOBILE NURSE-C Fernando Mccain Primary Care Pr ovider Mirian MOBILE NURSE, MOBILE NURSE-C Fernando Mccain Referring Provi prabha Dr. Toby Gaston Attending Provider Mirian MOBILE NURSE, Fernando Mccain Referring Unav ailable Toby Gaston Attending Unavailable Mirian MOBILE NURSE, Fernando Mccain Primary Care Unav ailable Mirian MOBILE NURSE, Fernando Mccain Referring Unav ailable Toby Gaston Attending Unavailable Mirian MOBILE NURSE, Fernando Mccain Primary Care Unav ailable Toby Gaston Attending Unavailable Toby Gaston Referring Unavailable Mirian MOBILE NURSE, Fernando Mccain Primary Care Unav ailable Mirian MOBILE NURSE, Fernando Mccain Referring Unav ailable oTby Gaston Attending Unavailable Mirian MOBILE NURSE, Fernando Mccain Primary Care Unav ailable Allergies Allergy Classification Reported Allergen(s) Allergy Type Date of Onset Reaction(s) Facility (1 source) metFORMIN; Translations: [metformin] Drug Allergy Vomiting (disorder) [facility] (1 source) Wheat gluten extract Drug Allergy 4 bloating [facility] (1 source) Gluten Drug allergy (disorder) 5 [facility] Repository Medications Current Medications Medication Drug Class(es) Dates Sig (Normalized) Sig (Original) Ascorbic Acid (3 sources) Vitamin C Start: 10-09-2021 Vitamin C qDay , 0 Refill(s) Start Date: 10/09/21 Status: Ordered Start: 12-21-2020 End: 07-24-2023 take 500 mg by mouth once daily Ascorbic Acid (Vitamin C) Discontinued 500 MG PO DAILY December 21, 2020 12:00am July 24, 2023 7:04am Blood-Glucose Sensor (Freest yle Ivan 3 Sensor) device (2 sources) Start: 12-29-2023 Blood-Glucose Sensor (Freestyle Ivan 3 Sensor) device Active 0 .Route December 29, 2023 8:06am As directed Start: 01-23-2023 End: 12-29-2023 Blood-Glucose Sensor (Freest yle Ivan 3 Sensor) device Discontinued 0 .Route January 23, 2023 12:00am December 29, 2023 8:06am As directed cholecalciferol 0.05 mg oral capsule (2 sources) Vitamin D Start: 12-21-2020 take 2000 [IU] by mouth once daily Cholecalciferol (Vitamin D3) Active 2000 UNIT PO DAILY December 21, 2020 12:00am guaiFENesin 600 mg oral tablet (1 source) Start: 12-20-2021 End: 12-30-2021 guaiFENesin 600 mg oral tablet, extended release Dose : 600 mg = 1 tab(s), Oral, q12h, X 10 day(s), # 20 tab(s), 0 Refill(s), 12/30/21 8:00:00 EST, Pharmacy: [id number], COVID-19, 182, cm, 12/20/21 7:44:00 EST, Height, kg, 12/20/21 7:44:00 EST, Dosing Weight Start Date: 12/20/21 Stop Date: 12/30/21 Status: Ordered 3 ml insulin aspart, human 100 unt/ml pen injector (6 sources) Insulin Analog Start: 07-08-2022 End: 01-26-2024 Insulin Aspart U-100 (Novolog Flexpen U-100 Insulin) 100 unit/mL (3 mL) insulin pen Active 5 UNIT SC THREE TIMES A DAY 3 January 26, 2024 8:24am Start: 07-08-2022 End: 07-08-2022 Insulin Aspart U-100 (Novolo g Flexpen U-100 Insulin) 100 unit/mL (3 mL) insulin pen Discontinued 5 UNIT SC .as needed 3 July 07, 2022 11:00pm July 08, 2022 11:18am Insulin Glargine-Yfgn (Semglee(Insulin Glarg-Yfgn)Pen) 100 unit/mL (3 mL) insulin pen (1 source) Start: 01-27-2024 Insulin Glargi ne-Yfgn (Semglee(Insulin Glarg-Yfgn)Pen) 100 unit/mL (3 mL) insulin pen Active 20 UNIT SC DAILY January 27, 2024 12:00am Multivitamin preparation (4 sources) Start: 12-21-2020 Multivitamin A ctive 1 EACH PO DAILY December 21, 2020 12:00am Start: 12-21-2020 Multivitamin A ctive 1 EACH PO DAILY December 21, 2020 1:00am Start: 08-06-2019 End: 01-29-2020 take 1 tablet by mouth once daily Multivitamin Discontinued 1 TABLET PO DAILY August 05, 2019 11:00pm January 29, 2020 8:47am Start: 08-06-2019 End: 01-29-2020 take 1 tablet by mouth once daily Multivitamin Discontinued 1 TABLET PO DAILY August 06, 2019 12:00am January 29, 2020 9:47am Vitamin D3 (1 source) Start: 10-09-2021 Vitamin D3 Dos e : 5,000 unit(s) = 1 cap(s), Oral, qWeek, 0 Refill(s) Start Date: 10/09/21 Status: Ordered Zinc (3 sources) Start: 10-09-2021 take 1 mg by mouth o nce daily Zinc mg =, Oral, qDay, 0 Refill(s) Start Date: 10/09/21 Status: Ordered Start: 12-21-2020 take 50 mg by mouth once daily Zinc Active 50 MG PO DAILY December 21, 2020 12:00am Start: 12-21-2020 take 50 mg by mouth once daily Zinc Active 50 MG PO DAILY December 21, 2020 1:00am Completed/Discontinued Medications Medication Drug Class(es) Dates Sig (Normalized) Sig (Original) amoxicillin 875 mg / clavulanate 125 mg oral tablet (2 sources) Penicillin-class Antibacterial Start: 01-29-2020 End: 11-27-2020 take 1 tablet by mouth twice daily Amoxicillin-Pot Clavulanate Discontinued 1 TABLET PO TWICE A DAY January 29, 2020 12:00am November 27, 2020 10:00am Flash Glucose Sensor (Freestyle Ivan 14 Day Sensor) kit (17 sources) Start: 12-05-2022 End: 01-23-2023 Flash Glucose Sensor (Freestyle Ivan 14 Day Sensor) kit Discontinued 0 .ROUTE .MEDSUPPLY December 05, 2022 2:59pm January 23, 2023 8:27am 1 sensor q 14 days Start: 06-17-2022 End: 12-05-2022 Flash Glucose Sensor (Freest yle Ivan 14 Day Sensor) kit Discontinued 0 .ROUTE .MEDSUPPLY June 17, 2022 1:54pm December 05, 2022 2:59pm 1 sensor q 14 days Start: 06-17-2022 Flash Glucose Sensor (Freestyle Ivan 14 Day Sensor) kit Active 0 .ROUTE .MEDSUPPLY June 17, 2022 2:54pm 1 sensor q 14 days Start: 04-03-2022 End: 06-17-2022 Flash Glucose Sensor (Freest yle Ivan 14 Day Sensor) kit Discontinued 0 .ROUTE .MEDSUPPLY April 03, 2022 8:28am June 17, 2022 1:54pm As directed Start: 04-03-2022 End: 06-17-2022 Flash Glucose Sensor (Freest yle Ivan 14 Day Sensor) kit Discontinued 0 .ROUTE .MEDSUPPLY April 03, 2022 9:28am June 17, 2022 2:54pm As directed Start: 04-02-2022 End: 04-03-2022 Flash Glucose Sensor (Freest yle Ivan 14 Day Sensor) kit Discontinued 0 .ROUTE .MEDSUPPLY April 02, 2022 12:46pm April 03, 2022 8:28am As directed Start: 04-02-2022 End: 04-03-2022 Flash Glucose Sensor (Freest yle Ivan 14 Day Sensor) kit Discontinued 0 .ROUTE .MEDSUPPLY April 02, 2022 1:46pm April 03, 2022 9:28am As directed Start: 01-18-2022 End: 04-02-2022 Flash Glucose Sensor (Freest yle Ivan 14 Day Sensor) kit Discontinued 0 .ROUTE .MEDSUPPLY January 18, 2022 10:26am April 02, 2022 12:46pm As directed Start: 01-18-2022 End: 04-02-2022 Flash Glucose Sensor (Freest yle Ivan 14 Day Sensor) kit Discontinued 0 .ROUTE .MEDSUPPLY January 18, 2022 11:26am April 02, 2022 1:46pm As directed Start: 11-02-2021 End: 01-18-2022 Flash Glucose Sensor (Freest yle Ivan 14 Day Sensor) kit Discontinued 0 .ROUTE .MEDSUPPLY November 02, 2021 10:33am January 18, 2022 10:26am As directed Start: 11-02-2021 End: 01-18-2022 Flash Glucose Sensor (Freest yle Ivan 14 Day Sensor) kit Discontinued 0 .ROUTE .MEDSUPPLY November 02, 2021 11:33am January 18, 2022 11:26am As directed Start: 06-25-2021 End: 11-02-2021 Flash Glucose Sensor (Freest yle Ivan 14 Day Sensor) kit Discontinued 0 .ROUTE .MEDSUPPLY June 25, 2021 2:38pm November 02, 2021 10:33am As directed Start: 06-25-2021 End: 11-02-2021 Flash Glucose Sensor (Freest yle Ivan 14 Day Sensor) kit Discontinued 0 .ROUTE .MEDSUPPLY June 25, 2021 3:38pm November 02, 2021 11:33am As directed Start: 01-18-2021 End: 06-25-2021 Flash Glucose Sensor (Freest yle Ivan 14 Day Sensor) kit Discontinued 0 .ROUTE .MEDSUPPLY 2 January 18, 2021 10:31am June 25, 2021 2:38pm As directed Start: 01-18-2021 End: 06-25-2021 Flash Glucose Sensor (Freest yle Ivan 14 Day Sensor) kit Discontinued 0 .ROUTE .MEDSUPPLY 2 January 18, 2021 11:31am June 25, 2021 3:38pm As directed Start: 01-18-2021 End: 01-18-2021 Flash Glucose Sensor (Freest yle Ivan 14 Day Sensor) kit Discontinued 0 .ROUTE .MEDSUPPLY 2 January 18, 2021 12:00am January 18, 2021 10:31am As directed Start: 01-18-2021 End: 01-18-2021 Flash Glucose Sensor (Freest yle Ivan 14 Day Sensor) kit Discontinued 0 .ROUTE .MEDSUPPLY 2 January 18, 2021 1:00am January 18, 2021 11:31am As directed gabapentin 100 mg oral capsule (1 source) Anti-epileptic Agent Start: 07-15-2023 End: 07-24-2023 take 100 mg by mouth three times daily Gabapentin Discontinued 100 MG PO THREE TIMES A DAY 90 July 14, 2023 11:00pm July 24, 2023 7:04am icosapent ethyl 1000 mg oral capsule (3 sources) Start: 02-05-2022 End: 07-08-2022 Icosapent Ethyl Discontinued GM PO February 05, 2022 12:00am July 08, 2022 7:19am Start: 10-22-2021 End: 04-20-2022 Vascepa 1 g oral capsule Dos e : 2 gram(s) = 2 cap(s), Oral, BID, # 360 cap(s), 1 Refill(s), Pharmacy: [facility], 182, cm, 10/09/21 15:39:00 EST, Height, kg, 10/09/21 15:39:00 EST, Dosing Weight Start Date: 10/22/21 Stop Date: 04/20/22 Status: Ordered 3 ml insulin glargine 100 unt/ml pen injector (11 sources) Insulin Analog Start: 01-26-2024 End: 01-27-2024 Insulin Glargine Discontinued 20 UNIT SC EVERY EVENING January 26, 2024 8:24am January 27, 2024 3:03pm Start: 01-23-2023 End: 01-26-2024 Insulin Glargine Discontinue d 16 UNIT SC EVERY EVENING April 01, 2023 3:08pm January 26, 2024 8:25am Start: 12-04-2021 End: 01-23-2023 Insulin Glargine (Semglee Pe n U-100 Insulin) 100 unit/mL (3 mL) insulin pen Discontinued 10 UNIT SC EVERY EVENING 15 January 10, 2022 12:00am July 08, 2022 7:28am Problems Active Problems Problem Classification Problem Date Documented Da te Episodic/Chronic Chronic obstructive pulmonary disease and bronchiectasis (2 sources) Bronchitis; Translations: [Bronchitis, not specified as acute or chronic] 01-29-2020 Episodic Diabetes mellitus without complication (6 sources) Latent autoimmune diabetes mellitus in adult; Translations: [Type 1 diabetes mellitus] Onset: 01-18-2025 10-23-2020 Chronic Disorders of lipid metabolism (6 sources) Hypertriglyceridemi a; Translations: [Mixed hyperlipidemia] Onset: 01-18-2025 10-22-2021 Chronic Gastrointestinal hemorrhage (1 source) Hematochezia; Translations: [Melena] 08-27-2023 Episodic Hemorrhoids (1 source) Hemorrhoids; Translations: [Unspecified hemorrhoids] 09-11-2023 Episodic Immunizations and screening for infectious disease (1 source) Autoantibody titer positive 11-07-2020 Episodic Other gastrointestinal disorders (2 sources) Adult form of celiac disease; Translations: [Celiac disease] 07-24-2023 Chronic Other gastrointestinal disorders (2 sources) Celiac disease; Translations: [Celiac disease] 01-26-2024 Chronic Other gastrointestinal disorders (3 sources) Celiac disease; Translations: [Celiac disease] Onset: 01-18-2025 Chronic Other lower respiratory disease (2 sources) Lung mass; Translations: [Other nonspecific abnormal finding of lung field] 11-28-2020 Episodic Other nervous system disorders (1 source) Paresthesia; Translations: [Paresthesia of skin] 07-24-2023 Episodic Other screening for suspected conditions (not mental disorders or infectious disease) (1 source) Imaging of thorax abnormal 11-17-2020 Chronic Comment on above: CT scan of chest IMPRESSION: Irregular consolidation at the superior segment of the LEFT lower lobe calcified the previous chest radiographic abnormality. A conglomerate area of fibrosis is a consideration, although with the satellite and RIGHT upper lobe nodules, atypical infectious and inflammatory etiologies are also considered. The findings are not typical for neoplasm but this is difficult to exclude in its entirety. Is there any evidence for systemic connective tissue disease? Nuclear medicine PET CT and/or tissue sampling may be considered for clarification. Other skin disorders (2 sources) Disorder of subcutaneous tissue; Translations: [Disorder of the skin and subcutaneous tissue, unspecified] 08-11-2019 Episodic Other upper respiratory infections (2 sources) Acute sinusitis; Translations: [Acute sinusitis, unspecified] 01-29-2020 Episodic Residual codes; unclassified (1 source) Family history of cancer of colon 11-07-2020 Episodic Comment on above: Father diagnosed wit h colon cancer prior to age 50. Residual codes; unclassified (1 source) FH: Thyroid disorder 11-07-2020 Episodic Residual codes; unclassified (1 source) History of colonoscopy 11-07-2020 Episodic Comment on above: Colonoscopy, 2014 IMPRESSION: Noted cobblestoning Recommendation was for a repeat colonoscopy in 5 years. Familial history of colon cancer, father, prior to the age of 50. Thyroid disorders (6 sources) Goiter; Translations: [Stormy thyroiditis] Onset: 01-18-2025 10-23-2020 Chronic Unclassified (1 source) History of SARS-CoV-2 12-20-2021 Unclassified (3 sources) Patient encounter status 10-09-2021 Viral infection (1 source) Disease caused by 2019-nCoV 12-20-2021 Past or Other Problems Problem Classification Problem Date Documented Da te Episodic/Chronic Other nervous system disorders (1 source) Paresthesia of skin; Translations: [Paresthesia of skin] Onset: 01-26-2024 Episodic Results Test Name Value Interpretation Reference Range Facility Endocrinology Visit Reporton 01-18-2025 Endocrinology Visit Report [facility] [address] [place] [address] OFFICE VISIT Date of Service: 01/18/25 MR#: [id number] Acct: [id number] Name: ENDY SOTO Rep #: [id number] : 1980 Provider: Devan Mendez Age/Sex: 44/M [place] [facility] [place]: Signed Intake Vital Signs 07/19/24 08:03 01/18/25 07:48 Height 6 ft 6 ft Weight: 195 lb 198 lb 6 oz BMI 26.4 26.9 BP 123/73 H 126/75 H Blood Pressure Location Lt brachial Rt brachial Position Sitting Sitting Pulse 69 79 Pulse Source Monitor Monitor Pulse Oximetry (%) 97 97 Oxygen Delivery Method room air room air Intake Visit Reasons: 6 M FU Chief Complaint: Diabetes Is patient in pain?: No Allergies gluten Allergy (Verified 01/18/25 07:52) bloating Medications ???Medication ???Instructions ???Recorded ???Confirmed ???Type cholecalciferol (vitamin D3) 50 2,000 unit PO DAILY 12/21/2001/18 History mcg (2,000 unit) capsule multivitamin 1 ea PO DAILY 12/21/20 01/18/25 Hi story zinc 50 mg tablet 50 mg PO DAILY 12/21/20 01/18/25 H istory pen needle, diabetic 32 gauge x #400 ea 01/26/24 01/18/25 Rx 5/32 (BD Ultra-Fine Niecy Pen Needle) Novolog FlexPen U-100 Insulin 100 5 unit (0.05 mL) subcut TID #3 mL 07/19/24 01/18/25 Rx unit/mL (3 mL) subcutaneous (insulin aspart U-100) blood-glucose sensor (FreeStyle #6 ea 12/13/24 01/18/25 Rx Ivan 3 Sensor device) Semglee(insulin glarg-yfgn)Pen 100 20 unit (0.2 mL) subcut DAILY #1 8 01/18/25 01/18/25 Rx unit/mL (3 mL) subcutaneous mL (insulin glargine-yfgn) PFSH Medical History Paresthesias Celiac disease Mixed hyperlipidemia Stormy's disease Chronic cough Chronic pain Hyperbilirubinemia Diabetes Hemorrhoids Lesion of subcutaneous tissue Surgical History S/P tonsillectomy Family History Father Colon cancer Cancer Mother Asthma Hypertension Thyroid disorder Other Diabetes Prostate cancer Skin cancer Social History Smoking Status: Never smoker alcohol intake: current alcohol intake frequency: a few times a month HPI HPI Chief Complaint: Diabetes Details: ENDY SOTO, is a 44 M who presents to the office today for follow up. A1C is 6.6% GMI is 6.6% He is taking Semglee 19 units daily and log 3-4 units with meals. Upload of Ivan 3 shows excellent control, occasional glucose in the 60s and occasional post meal high. He has Stormy's with normal TSH. He has celiac disease. He is feeling well. ROS Const Constitutional: No fatigue, weight change or change in appetite Eyes Eyes: No change in vision ENT ENT: No dizziness/vertigo or difficulty swallowing Cardio Cardiology: No chest pain at rest, chest pain with exertion, shortness of breath or palpitations Musc Musculoskeletal: No abnormal gait, joint pain, numbness or tingling Neuro Neurology: No abnormal gait, memory loss, numbness or tingling Psych Psychiatric: No change in appetite, No memory loss and No Thoughts of harming yourself/Others Resp Respiratory: No cough, chest congestion or shortness of breath Gastro GI: No abdominal pain, constipation, diarrhea or difficulty swallowing Genitourinary Male: No burning urination Skin Skin: No itchy eyes or wounds Endo Endocrine: No fatigue or weight change Aller/Imm Allergy/Immunologic : No itchy eyes Exam Const General: cooperative, healthy appearing, comfortable, no acute distress, well developed and not cushingoid Nutritional Appearance: well nourished Orientation: alert, awake and oriented x3 [facility] Head: normal to inspection Ears: hearing grossly normal bilaterally Nose: external nose normal Mouth: oral mucosae normal Eyes General: appearance normal, both eyes and all related structures Alignment and Position: alignment normal Periorbital: periorbital findings normal Eyelids: eyelids normal Conjunctivae: conjunctivae normal Neck Neck: normal visual inspection Neck mass: No Thyroid: thyroid normal Lymphatic: no lymphadenopathy noted Chest Chest palpation inspection: normal inspection of the chest Resp Effort Inspection: normal respiratory effort, able to speak in complete sentences, symmetric chest movement, no audible wheezes and no cough Cardio Rate: regular rate Rhythm: regular rhythm Skin General: no rashes or lesions noted Neuro General: patient alert, patient awake and patient oriented x3 Cranial Nerves: CN's II-XI intact bilaterally Cognition: normal cognition Speech: speech normal Gait: normal gait (more content not included)... Normal [facility] Endocrinology Visit Reporton 07-19-2024 Endocrinology Visit Report [facility] [address] [place] [address] OFFICE VISIT Date of Service: 07/19/24 MR#: [id number] Acct: [id number] Name: ENDY SOTO Rep #: [id number] : 1980 Provider: Devan Mendez Age/Sex: 43/M [place] [facility] [place]: Signed Intake Vital Signs 01/26/24 08:06 07/19/24 08:03 Height 6 ft 6 ft Weight: 198 lb 195 lb BMI 26.8 26.4 BP 136/78 H 123/73 H Blood Pressure Location Lt brachial Lt brachial Position Sitting Sitting Pulse 69 69 Pulse Source Monitor Monitor Temp 97.5 F L Temp Source Temporal Pulse Oximetry (%) 97 97 Oxygen Delivery Method room air room air Intake Visit Reasons: 6 M FU Chief Complaint: Diabetes Home Health Nurse Required: No Accompanied by: Self Is patient in pain?: No Allergies gluten Allergy (Verified 07/19/24 08:02) bloating Medications ???Medication ???Instructions ???Recorded ???Confirmed ???Type cholecalciferol (vitamin D3) 50 2,000 unit PO DAILY 12/21/20 07/19/24 History mcg (2,000 unit) capsule multivitamin 1 ea PO DAILY 12/21/20 07/19/24 History zinc 50 mg tablet 50 mg PO DAILY 12/21/20 07/19/24 History blood-glucose sensor (FreeStyle #6 ea 12/29/23 07/19/24 Rx Ivan 3 Sensor device) pen needle, diabetic 32 gauge x #400 ea 01/26/24 07/19/24 Rx 5/32 (BD Ultra-Fine Niecy Pen Needle) Novolog FlexPen U-100 Insulin 100 5 unit (0.05 mL) subcut TID #3 mL 07/19/24 07/19/24 Rx unit/mL (3 mL) subcutaneous (insulin aspart U-100) Semglee(insulin glarg-yfgn)Pen 100 20 unit (0.2 mL) subcut DAILY #18 07/19/24 07/19/24 Rx unit/mL (3 mL) subcutaneous mL (insulin glargine-yfgn) [facility] Medical History Paresthesias Celiac disease Mixed hyperlipidemia Stormy's disease Chronic cough Chronic pain Hyperbilirubinemia Diabetes Hemorrhoids Lesion of subcutaneous tissue Surgical History S/P tonsillectomy Family History Father Colon cancer Cancer Mother Asthma Hypertension Thyroid disorder Other Diabetes Prostate cancer Skin cancer Social History Smoking Status: Never smoker alcohol intake: current alcohol intake frequency: a few times a month HPI HPI Chief Complaint: Diabetes Details: ENDY SOTO, is a 43 M who presents to the office today for follow up. A1C is 6.3% He is taking basal bolus. He is using Ivan CGM. Upload shows controlled blood sugars. LDL is 159, he declines statin at this time. He is feeling well. ROS Const Constitutional: No anorexia, excessive sweating, malaise, night sweats, weight change or change in appetite Eyes Eyes: No change in vision ENT ENT: No hearing loss, nasal congestion or difficulty swallowing Cardio Cardiology: No chest pain at rest, excessive sweating, shortness of breath, dyspnea on exertion, irregular heart rhythm or palpitations Musc Musculoskeletal: No abnormal gait, joint pain, numbness or tingling Neuro Neurology: No abnormal gait, memory loss, numbness or tingling Psych Psychiatric: No change in appetite, No memory loss and No Thoughts of harming yourself/Others Resp Respiratory: No cough, chest congestion or shortness of breath Gastro GI: No abdominal pain, constipation, diarrhea or difficulty swallowing Genitourinary Male: No burning urination Skin Skin: No hair loss in leg, itchy eyes, rash or skin ulcer Endo Endocrine: No excessive sweating or weight change Aller/Imm Allergy/Immunologic : No itchy eyes Exam Const General: cooperative, healthy appearing, comfortable, no acute distress, well developed and not cushingoid Nutritional Appearance: well nourished Orientation: alert, awake and oriented x3 [facility] Head: normal to inspection Ears: hearing grossly normal bilaterally Nose: external nose normal Mouth: oral mucosae normal Eyes General: appearance normal, both eyes and all related structures Alignment and Position: alignment normal Periorbital: periorbital findings normal Eyelids: eyelids normal Conjunctivae: conjunctivae normal Neck Neck: normal visual inspection Neck mass: No Chest Chest palpation inspection: normal inspection of the chest Resp Effort Inspection: normal respiratory effort, able to speak in complete sentences, symmetric chest movement, no audible wheezes and no cough Auscultation: Bilateral: Clear to Auscultation Cardio Rate: regular rate Rhythm: regular rhythm GI Inspection: normal to inspection Skin General: no rashes or lesions noted Neuro General: patient alert, patient awake and patient oriented x (more content not included)... Normal [facility] Basophil percentageOrdered B y: Toby Gaston on 01-30-2024 Bilirubin [Mass/Vol] 0.30 mg/dL 0.20-1.00 [facility] Comment on above: For patients on eltr ombopag therapy, use of Dimension [place] TBIL is not recommended. Chloride [Moles/Vol] 108 mmol/L 98-107 [facility] Cholesterol [Mass/Vol] 239 mg/dL <200 [facility] Comment on above: <200 mg/dL Desirable 200-240 mg/dL Borderline >240 mg/dL High Risk Glucose [Mass/Vol] 72 mg/dL 74-106 [facility] Potassium [Moles/Vol] 3.9 mmol/L 3.5-5.1 [facility] Protein [Mass/Vol] 7.2 g/dL 6.4-8.2 [facility] Sodium [Moles/Vol] 140 mmol/L 136-145 [facility] Triglyceride [Mass/Vol] 155 mg/dL <199 [facility] Comment on above: The drugs N-Acetylcy steine and Metamizole may falsely depress this assay.Serum Triglycerides Reference Interval Normal <150 mg/dL Borderline high 150 - 199 mg/dL High 200 - 499 mg/dL Very High > or = 500 mg/dL Comprehensive Metabolic Prof [place] 01-30-2024 Albumin [Mass/Vol] 3.7 g/dL Normal 3.2-5.0 [facility] Comment on above: Performed By: #### L 500.5830, L500.4050 #### [facility] [address] [place], [address] Albumin/Globulin [Mass ratio] 1.1 {ratio} Normal 0.9-2.4 [facility] Comment on above: Performed By: #### L 500.4100, L500.4050 #### [facility] [address] [place], [address] ALK P 63 U/L Normal 45-117 [facility] Comment on above: Performed By: #### L 500.4100, L500.4050 #### [facility] [address] [place], [address] ALT [Catalytic activity/Vol] 55 U/L Normal 16-61 [facility] Comment on above: Performed By: #### L 500.4100, L500.4050 #### [facility] [address] [place], [address] AST [Catalytic activity/Vol] 64 U/L High 15-37 [facility] Comment on above: Performed By: #### L 500.4100, L500.4050 #### [facility] [address] [place], [address] Bilirubin [Mass/Vol] 0.30 mg/dL Normal 0.20-1.00 [facility] Comment on above: Result Comment: For patients on eltrombopag therapy, use of Dimension [place] TBIL is not recommended. Performed By: #### L 500.4100, L500.4050 #### [facility] [address] [place], [address] BUN/CRE 15.4 RATIO Normal 10-20 [facility] Comment on above: Performed By: #### L 500.4100, L500.4050 #### [facility] [address] [place], [address] CA,Total 9.0 mg/dL Normal 8.5-10.1 [facility] Comment on above: Performed By: #### L 500.4100, L500.4050 #### [facility] [address] [place], [address] Chloride [Moles/Vol] 108 mmol/L High 98-107 [facility] Comment on above: Performed By: #### L 500.4100, L500.4050 #### [facility] [address] [place], [address] CO2 [Moles/Vol] 29.0 mmol/L Normal 21.0-32.0 [facility] Comment on above: Performed By: #### L 500.4100, L500.4050 #### [facility] [address] [place], [address] Creatinine [Mass/Vol] 1.17 mg/dL Normal 0.70-1.30 [facility] Comment on above: Result Comment: The validity of the calculated GFR GFRAA in patients over 70 years has not been determined. Clinical correlation is essential. Performed By: #### L 500.4100, L500.4050 #### [facility] [address] [place], [address] EST GFR - AA 87 mL/min Normal >60 [facility] Comment on above: Result Comment: Afri can Malian GFR Calc Performed By: #### L 500.4100, L500.4050 #### [facility] [address] [place], [address] GAP 3 Low 5-15 [facility] Comment on above: Performed By: #### L 500.4100, L500.4050 #### [facility] [address] [place], [address] GFR/1.73 sq M.predicted among non-blacks MDRD (S/P/Bld) [Vol rate/Area] 72 mL/min/{1.73_m2} Normal >60 [facility] Comment on above: Result Comment: Non- GFR Calc Performed By: #### L 500.4100, L500.4050 #### [facility] [address] [place], [address] Globulin (S) [Mass/Vol] 3.5 g/dL Normal 2.2-4.2 [facility] Comment on above: Performed By: #### L 500.4100, L500.4050 #### [facility] [address] [place], [address] Glucose [Mass/Vol] 72 mg/dL Low 74-106 [facility] Comment on above: Performed By: #### L 500.4100, L500.4050 #### [facility] [address] [place], [address] Potassium [Moles/Vol] 3.9 mmol/L Normal 3.5-5.1 [facility] Comment on above: Performed By: #### L 500.4100, L500.4050 #### [facility] [address] [place], [address] Sodium [Moles/Vol] 140 mmol/L Normal 136-145 [facility] Comment on above: Performed By: #### L 500.4100, L500.4050 #### [facility] [address] [place], [address] T PROT 7.2 g/dL Normal 6.4-8.2 [facility] Comment on above: Performed By: #### L 500.4100, L500.4050 #### [facility] [address] [place], [address] Urea nitrogen [Mass/Vol] 18 mg/dL Normal 7-18 [facility] Comment on above: Performed By: #### L 500.4100, L500.4050 #### [facility] [address] [place], [address] Laboratory - Chemistry and C hemistry - challengeOrdered By: Toby Gaston on 01-30-2024 Albumin/Globulin [Mass ratio] 1.1 {ratio} 0.9-2.4 [facility] ALP [Catalytic activity/Vol] 63 U/L 45-117 [facility] ALT [Catalytic activity/Vol] 55 U/L 16-61 [facility] Cholesterol in HDL [Mass/Vol] 49 mg/dL >40 [facility] Comment on above: The drugs N-Acetylcy steine and Metamizole may falsely depress this assay. Reference Range HDL <40 mg/dL Low HDL Cholesterol HDL >or= 60 mg/dL High HDL Cholesterol Cholesterol in LDL [Mass/Vol] 159 mg/dL 0-130 [facility] CO2 [Moles/Vol] 29.0 mmol/L 21.0-32.0 [facility] Globulin (S) [Mass/Vol] 3.5 g/dL 2.2-4.2 [facility] Urea nitrogen/Creatinine [Mass ratio] 15.4 mg/mg 10-20 [facility] Lipid Profileon 01-30-2024 Cholesterol [Mass/Vol] 239 mg/dL High 200 [facility] Comment on above: Result Comment: <200 mg/dL Desirable 200-240 mg/dL Borderline >240 mg/dL High Risk Performed By: #### L 500.4100, L500.4050 #### [facility] [address] [place], [address] Cholesterol in HDL [Mass/Vol] 49 mg/dL Normal [facility] Comment on above: Result Comment: The drugs N-Acetylcysteine and Metamizole may falsely depress this assay. Reference Range HDL <40 mg/dL Low HDL Cholesterol HDL >or= 60 mg/dL High HDL Cholesterol Performed By: #### L 500.4100, L500.4050 #### [facility] [address] [place], [address] Cholesterol in LDL [Mass/Vol] 159 mg/dL High 0-130 [facility] Comment on above: Performed By: #### L 500.4100, L500.4050 #### [facility] [address] [place], [address] Cholesterol in VLDL [Mass/Vol] 31 mg/dL Normal 5-40 [facility] Comment on above: Performed By: #### L 500.4100, L500.4050 #### [facility] [address] [place], [address] Triglyceride [Mass/Vol] 155 mg/dL Normal [facility] Comment on above: Result Comment: The drugs N-Acetylcysteine and Metamizole may falsely depress this assay. Serum Triglycerides Reference Interval Normal <150 mg/dL Borderline high 150 - 199 mg/dL High 200 - 499 mg/dL Very High > or = 500 mg/dL Performed By: #### L 500.4100, L500.4050 #### [facility] [address] [place], [address] No Panel InformationOrdered By: Toby Gaston on 01-30-2024 Estimated GFR (MDRD) Amer 87 mL/min >60 [facility] Comment on above: GFR Calc Estimated GFR (MDRD) Non-Af Amer 72 mL/min >60 [facility] Comment on above: Non- GFR Calc VLDL Cholesterol 31 mg/dL 5-40 [facility] Serum or plasma calcium hanna urement (mass/volume)Ordered By: Toby Gaston on 01-30-2024 Calcium [Mass/Vol] 9.0 mg/dL 8.5-10.1 [facility] Serum or plasma creatinine m easurement (mass/volume)Ordered By: Toby Gaston on 01-30-2024 Creatinine [Mass/Vol] 1.17 mg/dL 0.70-1.30 [facility] Comment on above: The validity of the calculated GFR & GFRAA in patients over 70 years has not been determined. Clinical correlation is essential. Serum or plasma urea nitroge n measurement (mass/volume)Ordered By: Toby Gaston on 01-30-2024 Urea nitrogen [Mass/Vol] 18 mg/dL 7-18 [facility] Thin prep Papanicolaou smear with manual screeningOrdered By: Toby Gaston on 01-30-2024 Thin prep Papanicolaou smear with manual screening 3.7 g/dL 3.2-5.0 [facility] Thin prep Papanicolaou smear with manual screening 64 U/L 15-37 [facility] Thin prep Papanicolaou smear with manual screening 3 5-15 [facility] Endocrinology Visit Reporton 01-26-2024 Endocrinology Visit Report [facility] [address] [place] [address] OFFICE VISIT Date of Service: 01/26/24 MR#: [id number] Acct: [id number] Name: ENDY SOTO Rep #: [id number] : 1980 Provider: Devan Mendez Age/Sex: 43/M [place] [facility] [place]: Signed Intake Vital Signs 07/24/23 08:03 08/27/23 13:11 01/26/24 08:06 Height 6 ft 6 ft 6 ft Weight: 188 lb 6 oz 198 lb BMI 25.5 26.8 BP 128/74 H 136/78 H Blood Pressure Location Lt brachial Lt brachial Position Sitting Sitting Respiration 18 Pulse 72 69 Pulse Source Monitor Monitor Temp 98.2 F 97.5 F L Temp Source Temporal Temporal Pulse Oximetry (%) 97 97 Oxygen Delivery Method room air room air Intake Visit Reasons: 6 M FU Chief Complaint: Diabetes Home Health Nurse Required: No Accompanied by: Self Is patient in pain?: No Allergies gluten Allergy (Verified 01/26/24 08:09) bloating Medications cholecalciferol (vitamin D3) 50 mcg (2,000 unit) capsule 2,000 unit PO DAILY 12/21/20 [History Confirmed 01/26/24] multivitamin 1 ea PO DAILY 12/21/20 [History Confirmed 01/26/24] zinc 50 mg tablet 50 mg PO DAILY 12/21/20 [History Confirmed 01/26/24] blood-glucose sensor (FreeStyle Ivan 3 Sensor device) #6 ea 12/29/23 [Rx Confirmed 01/26/24] Novolog FlexPen U-100 Insulin 100 unit/mL (3 mL) subcutaneous (insulin aspart U-100) 5 unit (0.05 mL) subcut TID #3 mL 01/26/24 [Rx Confirmed 01/26/24] insulin glargine 100 unit/mL (3 mL) subcutaneous pen 20 unit (0.2 mL) subcut QPM #18 mL 01/26/24 [Rx Confirmed 01/26/24] pen needle, diabetic 32 gauge x 5/32 (BD Ultra-Fine Niecy Pen Needle) #400 ea 01/26/24 [Rx Confirmed 01/26/24] PFSH Medical History Celiac disease Chronic cough Chronic pain Diabetes Stormy's disease Hemorrhoids Hyperbilirubinemia Lesion of subcutaneous tissue Mixed hyperlipidemia Paresthesias Surgical History S/P tonsillectomy Family History Father Colon cancer Cancer Mother Asthma Hypertension Thyroid disorder Other Diabetes Prostate cancer Skin cancer Social History Smoking Status: Never smoker alcohol intake: current alcohol intake frequency: a few times a month HPI HPI Chief Complaint: Diabetes Details: ENDY SOTO, is a 43 M who presents to the office today for follow up. A1c is 6.2% He is taking Semglee 20 units and Novolog 5 units tid. He is using Ivan 3 CGM. Upload shows good control, trends up during the day, some lows over night. He is having occasional tingling in the bottoms of his feet, but nothing like the symptoms he was having in July. Last LFTs were elevated and LDL 157. No new complaints. Exam Const General: cooperative, healthy appearing, comfortable, no acute distress, well developed and not cushingoid Nutritional Appearance: well nourished Orientation: alert, awake and oriented x3 HENMT Head: normal to inspection Ears: hearing grossly normal bilaterally Nose: external nose normal Mouth: oral mucosae normal Eyes General: appearance normal, both eyes and all related structures Alignment and Position: alignment normal Periorbital: periorbital findings normal Eyelids: eyelids normal Conjunctivae: conjunctivae normal Neck Neck: normal visual inspection Neck mass: No Thyroid: thyroid normal Lymphatic: no lymphadenopathy noted Chest Chest palpation inspection: normal inspection of the chest Resp Effort Inspection: normal respiratory effort, able to speak in complete sentences, symmetric chest movement, no audible wheezes and no cough Auscultation: Bilateral: Clear to Auscultation Cardio Rate: regular rate Rhythm: regular rhythm GI Inspection: normal to inspection Skin General: no rashes or lesions noted Neuro General: patient alert, patient awake and patient oriented x3 Cranial Nerves: CN's II-XI intact bilaterally Cognition: normal cognition Speech: speech normal Gait: normal gait Motor: muscle tone normal throughout Extrem General: no edema Psych Appearance: grossly normal Mental Status: mental status grossly normal Mood: congruent mood Affect: normal affect Speech and Movement: speech and movement normal Attitude: cooperative Thought Process: normal Thought Content: normal Judgment: judgment good Results POC A1C POC A1C 6.2 % Last Edit by June Kumari on 01/26/24 08:12 Coding Level of Care Code Off vis,est,level 4 Diagnoses Controlled diabetes mellitus type 1 without complications E10.9 Diabetes mellitus complication status: without complication Mixe (more content not included)... Normal [facility] - Hematology and Cell countson 01-26-2024 HbA1c (Bld) [Mass fraction] 6.2 % 4.2-6.3 [facility] 07-08-2022 HbA1c (Bld) [Mass fraction] 6.0 % 4.2-6.3 [facility] Work Phone: [id number] 12-20-2021 Date of Onset 20211217 Invalid Interpretation Code [facility] Comment on above: Performed By: #### C OVD19 #### Adriel Gilliam [address] [place] [address] Employed in Healthcare No Normal Counts include 234 beds at the [facility] ([place]) Comment on above: Performed By: #### C OVD19 #### Adriel Gilliam [address] [place] [address] First Test No [facility] ([place]) Comment on above: Performed By: #### C OVD19 #### Adriel Gilliam [address] [place] [address] Hospitalized No [facility] ([place]) Comment on above: Performed By: #### C OVD19 #### [id number] [place], [place] [address] ICU No Normal [facility] [place] Comment on above: Performed By: #### C OVD19 #### [address] [place], [place] [address] Not Normal [facility] [place] Comment on above: Performed By: #### C OVD19 #### [place] [address] Resides in Congregate Care Setting No Normal [facility] ([place]) Comment on above: Performed By: #### C OVD19 #### [place] [address] SARS-CoV-2 (COVID-19) RNA CONCHIS+probe Ql (Unsp spec) Positive Abnormal Negative [facility] [place] Comment on above: Performed By: #### C OVD19 #### [place] [address] SARS-CoV-2 (COVID-19) RNA CONCHIS+probe Ql (Unsp spec) Normal [facility] [place] Comment on above: Result Comment: Posi tive results are indicative of the presence of SARS-CoV-2 RNA; clinical correlation with patient history and other diagnostic information is necessary to determine patient infection status. Positive results do not rule out bacterial infection or co-infection with other viruses. The agent detected may not be the definite cause of disease. Laboratories within the [facility] and its territories are required to report all positive results to the appropriate public health authorities. Detection of analyte target(s) does not imply that the corresponding virus(es) are infectious or are the causative agents for clinical symptoms. There is a risk of false positive values resulting from cross-contamination by target organisms, their nucleic acids or amplified product, or from non-specific signals in the assay. SURI SARS-CoV-2 Assay is a Real-Time reverse-transcriptase polymerase chain reaction (RT-PCR) based qualitative in vitro diagnostic test intended for the qualitative detection of nucleic acid from the SARS-CoV-2 in nasopharyngeal swab specimens collected from individuals suspected of COVID-19 by their healthcare provider. Testing is limited to laboratories certified under the Clinical Laboratory Improvement Amendments of 1988 (CLIA), 42 U.S.C. ?263a, to perform moderate and high complexity tests. COVID-19 Int Performed By: #### C OVD19 #### [address] [address] Symptomatic as Defined by CDC Yes Normal [facility] ([place] Comment on above: Performed By: #### C OVD19 #### [address] [place] [id number] [place], [place] [address] LABORATORYOrdered By: Brandi Whitley on 12-20-2021 ADMITTED TO INTENSIVE CARE UNIT FOR CONDITION OF INTEREST:FIND:PT:^MARIA D ENT:ORD: No (12/20/21 11:55 AM) Invalid Interpretation Code AO Auto Urine SS EMPLOYED IN A HEALTHCARE SETTING:FIND:PT:^PATIE NT:ORD: No (12/20/21 11:55 AM) Invalid Interpretation Code AO Auto Urine SS FIRST TEST FOR CONDITION OF INTEREST:FIND:PT:^MARIA D ENT:ORD: No (12/20/21 11:55 AM) Invalid Interpretation Code AO Auto Urine SS HAS SYMPTOMS RELATED TO CONDITION OF INTEREST:FIND:PT:^MAIRA D ENT:ORD: Yes (12/20/21 11:55 AM) Invalid Interpretation Code AO Auto Urine SS Illness or injury onset date and time 20211217 Invalid Interpretation Code AO Auto Urine SS Patient was hospitalized because of this condition No (12/20/21 11:55 AM) Invalid Interpretation Code AO Auto Urine SS status Not (12/20/21 11:55 AM) Invalid Interpretation Code AO Auto Urine SS RESIDES IN A CONGREGATE CARE SETTING:FIND:PT:^PATIE NT:ORD: No (12/20/21 11:55 AM) Invalid Interpretation Code AO Auto Urine SS SARS-CoV-2 (COVID-19) RNA CONCHIS+probe Ql (Resp) Positive *ABN* (12/20/21 11:55 AM) Invalid Interpretation Code Negative AO Auto Urine SS SARS-CoV-2 (COVID-19) RNA CONCHIS+probe Ql (Unsp spec) Positive results are indicative of the presence of SARS-CoV-2 RNA; clinical correlation with patient history and other diagnostic information is necessary to determine patient infection status. Positive results do not rule out bacterial infection or co-infection with other viruses. The agent detected may not be the definite cause of disease. Laboratories within the [facility] and its territories are required to report all positive results to the appropriate public health authorities.Detecti on of analyte target(s) does not imply that the corresponding virus(es) are infectious or are the causative agents for clinical symptoms.There is a risk of false positive values resulting from cross-contamination by target organisms, their nucleic acids or amplified product, or from non-specific signals in the assay.SURI SARS-CoV-2 Assay is a Real-Time reverse-transcripta se polymerase chain reaction (RT-PCR) based qualitative in vitro diagnostic test intended for the qualitative detection of nucleic acid from the SARS-CoV-2 in nasopharyngeal swab specimens collected from individuals suspected of COVID-19 by their healthcare provider. Testing is limited to laboratories certified under the Clinical Laboratory Improvement Amendments of 1988 (CLIA), 42 U.S.C. 263a, to perform moderate and high complexity tests. Invalid Interpretation Code AO Auto Urine SS Vital Signs Date Time Vital Sign Value Performing Clinician Faci lity 01-26-2024 08:06-0500 Body height 182.88 cm MOBILE NURSE-C Fernando Willpkins MOBILE NURSE Work Phone: [facility] 01-26-2024 08:06-0500 Body mass index (BMI) [Ratio] 26.8 kg/m2 MOBILE NURSE-C Fernando Willpkins MOBILE NURSE Work Phone: [facility] 01-26-2024 08:06-0500 Body temperature 97.5 [degF] MOBILE NURSE-C Fernando Vela MOBILE NURSE Work Phone: [facility] 01-26-2024 08:06-0500 Body weight 89.81 kg MOBILE NURSE-C Fernando Vela MOBILE NURSE Work Phone: [facility] 01-26-2024 08:06-0500 Diastolic blood pressure 78 mm[Hg] MOBILE NURSE-C Fernando Willpkins MOBILE NURSE Work Phone: [facility] 01-26-2024 08:06-0500 Heart rate 69 /min MOBILE NURSE-C Fernando Willpkins MOBILE NURSE Work Phone: [facility] 01-26-2024 08:06-0500 SaO2% (BldA) [Mass fraction] 97 % MOBILE NURSE-C Fernando Vela MOBILE NURSE Work Phone: [facility] 01-26-2024 08:06-0500 Systolic blood pressure 136 mm[Hg] MOBILE NURSE-C Fernando Vela MOBILE NURSE Work Phone: [facility] 07-08-2022 08:20-0400 Body mass index (BMI) [Ratio] 24.7 kg/m2 MOBILE NURSE-C Fernando Vela MOBILE NURSE Work Phone: [facility] Work Phone: 07-08-2022 08:09-0400 Body height 182.88 cm MOBILE NURSE-C Fernando Vela MOBILE NURSE Work Phone: [facility] Work Phone: 07-08-2022 08:09-0400 Body temperature 96.6 [degF] MOBILE NURSE-C Fernando Vela MOBILE NURSE Work Phone: [facility] Work Phone: 07-08-2022 08:09-0400 Body weight 86.74 kg MOBILE NURSE-C Fernando Vela MOBILE NURSE Work Phone: [facility] Work Phone: 07-08-2022 08:09-0400 Diastolic blood pressure 66 mm[Hg] MOBILE NURSE-C Fernando Vela MOBILE NURSE Work Phone: [facility] Work Phone: 07-08-2022 08:09-0400 Heart rate 67 /min MOBILE NURSE-C Fernando Vela MOBILE NURSE Work Phone: [facility] Work Phone: 07-08-2022 08:09-0400 Respiratory rate 18 /min MOBILE NURSE-C Fernando Vela MOBILE NURSE Work Phone: [facility] Work Phone: 07-08-2022 08:09-0400 SaO2% (BldA) [Mass fraction] 96 % MOBILE NURSE-C Fernando Willpkins MOBILE NURSE Work Phone: [facility] Work Phone: 07-08-2022 08: Systolic blood pressure 108 mm[Hg] MOBILE NURSE-C Fernando Vela MOBILE NURSE Work Phone: [facility] Work Phone: Encounters Encounter Date Encounter Type Care Provider Facility Start: 01-18-2025 End: 01-18-2025 ambulatory Fernando Vela MOBILE NURSE Facility:[facility] Start: 07-19-2024 End: 07-19-2024 ambulatory Fernando Vela MOBILE NURSE Facility:[facility] Start: 01-30-2024 End: 01-30-2024 ambulatory MOBILE NURSE-C Fernando Vela MOBILE NURSE Work Phone: [facility] Work Phone: Start: 01-30-2024 End: 01-30-2024 Patient encounter procedure MOBILE NURSE-C Fernando Vela MOBILE NURSE Work Phone: [facility] Work Phone: Start: 01-30-2024 End: 01-30-2024 ambulatory Toby Alek Facility:[facility] Start: 01-26-2024 End: 01-26-2024 Patient encounter procedure MOBILE NURSE-C Fernando Vela MOBILE NURSE Work Phone: [facility] Work Phone: Start: 01-26-2024 End: 01-26-2024 ambulatory Fernando Vela MOBILE NURSE Facility:[facility] Start: 09-03-2022 End: 09-03-2022 ambulatory MOBILE NURSE-C Fernando Vela MOBILE NURSE Work Phone: [facility] Work Phone: Start: 09-03-2022 End: 09-03-2022 Patient encounter procedure MOBILE NURSE-C Fernando Vela MOBILE NURSE Work Phone: 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 PACKAGE PLAN [id number] Unknown [id number] Unknown [id number] Unknown [id number] [id number] [id number] Unknown [id number] [id number] [id number] Social History Date Type Detail Facility Start: 10-23-2020 Never smoked t obacco (finding) [facility] Assigned At [facility] Start: 07-08-2022 End: 01-26-2024 Tobacco smoking status NHIS Unknown if ever smoked [facility] Start: 1980 Sex Assigned At Male W [facility] Medical Equipment Procedure Code Equipment Code Equipment Origin al Text Equipment Identifier Dates Pen Needle, Diab etic (Bd Ultra-Fine Niecy Pen Needle) 32 gauge x 5/32 needle Start: 01-26-2024 Evaluation + Plan note Laboratory Note Date & Type Note Facility Evaluation + Plan note Future Scheduled TestsThyroid Stimulating Hormone 01/22/22Free T4 01/22/22Lipid Profile 01/22/22 [facility] Evaluation note Note Date & Type Note Facility Evaluation note Diagnosis Onset Date Celiac disease acute Mixed hyperlipidemia acute Controlled type 1 diabetes mellitus chronic Stormy's thyroiditis review engineer [facility] Work Phone: Evaluation note Note Date & Type Note Facility Evaluation note Diagnosis Onset Date Celiac disease chronic Controlled type 1 diabetes mellitus chronic Mixed hyperlipidemia [facility] Work Phone: Hospital course Narrative Note Date & Type Note Facility Hospital course Narrative No data available for this section [facility] Hospital Discharge instructions Note Date & Type Note Facility Hospital Discharge instructions No data available for this section [facility] Summary Purpose Family History No Family History Records Found Relationship Condition Age at Onset Recorded Date/T kati Not Specified Malignant neoplasm of skin Unknown Malignant neoplasm of prostate Unknown Diabetes mellitus Unknown Malignant neoplasm Unknown Disorder of thyroid Unknown father Malignant neoplasm of colon Unknown Relationship Condition Age at Onset Recorded Date/T kati Not Specified Malignant neoplasm of skin Unknown Malignant neoplasm of prostate Unknown Diabetes mellitus Unknown father Malignant neoplasm of colon Unknown Malignant neoplasm Unknown mother Asthma Unknown Hypertension Unknown Disorder of thyroid Unknown Advance Directives No Advanced Directives Records Found Advance Directive Response Recorded Date/ Time Advance Directives No October 2:40pm Living Will No October 12 020 2:40pm Power of Director [employer] [facility] October 12, 2020 2:40pm Advance Directive Response Recorded Date/ Time Advance Directives No October 1:40pm Living Will No July 15 3 4:05am Power of Director [employer] [facility] July 15, 023 4:05am Chief Complaint and Reason for Visit Chief Complaint 1 Y FU LLL LUNG MASS Reason for Visit Celiac disease Mixed hyperlipidemia Controlled type 1 diabetes mellitus Stormy's thyroiditis Chief Complaint 6 M FU E ORDERS Reason for Visit Celiac disease Controlled type 1 diabetes mellitus Mixed hyperlipidemia Additional Source Comments (unrecognized sect ion and content) No Status Records FoundNo Status Records Found INFORMATION SOURCE (unrecogn ized section and content) DATE CREATED AUTHOR 12/21/2021 [facility] ([place]) DATE CREATED AUTHOR AUTHOR'S JEFERSON ATSHANTE 01/18/2025 [facility] Goals (unrecognized section and content) Goals may be documented in a n alternate section Care Teams (unrecognized sec tion and content) Team Status: Active Member Role Status Dates Dr. Jordan Cotto MD Family Provider Active Fernando Vela MOBILE NURSE, MOBILE NURSE-C Primary Care Provider Active Team Status: Inactive Member Role Status Dates Fernando Vela MOBILE NURSE, MOBILE NURSE-C Primary Care Provider, Referring Provider Active Dr. Toby Gaston MD Attending Provider Active Team Status: Inactive Member Role Status Dates Fernando Vela MOBILE NURSE, MOBILE NURSE-C Primary Care Provider Active Dr. Toby Gaston MD Attending Provider, Referring Provi prabha Active FOR RECORDS PERTAINING TO PATIENTS WHO ARE [...] BE BASED ON THE PRIMARY CLINICAL RECORDS. [facility]. provides no warranty or guarantee of the accuracy or completeness of information in this document.
[2025-07-14 07:56] LABS: Creatinine, Urine (random) 48.20 mg/dL (39.00-259.00); Microalbumin,Random Urine < 12.0 mg/L (<20 mg/L)
[2025-07-14 08:07] LABS: Cholesterol 248 mg/dL (<=200); Low Density Lipoprotein Calc. 171 mg/dL; Triglycerides 172 mg/dL; Very Low Density Lipoprotein 34 mg/dL (5-40); cholesterol:hdl ratio screen 5.84
[2025-07-14 08:11] LABS: AST(SGOT) 31 U/L (<=37); Alanine Aminotransfer ALT/SGPT 32 U/L (<=46); Albumin, Serum 4.1 g/dL (3.5-5.0); Alkaline Phosphatase 72 U/L (40-129); Anion Gap 11 (5-15); BUN 20 mg/dL (4-19); BUN/Creat Ratio 19.8 RATIO (10-20); Calcium,Total 9.2 mg/dL (7.6-11.0); Carbon Dioxide 24.2 mmol/L (21.0-32.0); Chloride 104 mmol/L (98-108); Globulin 2.8 g/dL (2.2-4.2); Glucose 85 mg/dL (70-99); Potassium 3.7 mmol/L (3.3-5.1)
== END | disposition home or self-care (01) ==
LOC: LAB 06:19
PROVIDERS: PCP Nurse Practitioner Family; Referring Provider Internal Medicine Endocrinology, Diabetes & Metabolism; Visit Provider Internal Medicine Endocrinology, Diabetes & Metabolism
DX: E10.9 Type 1 diabetes mellitus without complications (principal); K90.0 Celiac disease; E06.3 Autoimmune thyroiditis; E78.2 Mixed hyperlipidemia
CPT/HCPCS: 36415; 80053; 80061; 82043; 82570; 84443